=== PATIENT | male | born 1970 | race Two or more races ===

== ENCOUNTER 2016-08-01 09:37 | Emergency (ER) | payer SELFPAY ==
[2016-08-01] MEDS ORDERED: FENTANYL PF 100 MCG/2 ML VIAL. IV PRN (10:15)
[2016-08-01] MEDS ORDERED: NITROGLYCERIN SUBLINGUAL 0.4 MG BOTTLE OF 25. SL PRN (10:15)
[2016-08-01 10:31] LABS: CALCIUM 8.8 mg/dL (8.5-10.1); CREATININE 0.8 mg/dL (0.7-1.3); GFR 105.5
[2016-08-01 10:33] LABS: BASO % 0 % (0-3); EOS % 0 % (0-3); HEMATOCRIT 45.8 % (39.0-53.0); HEMOGLOBIN 15.8 g/dL (13.0-17.5); LYMPH # 1.9 x10^3/uL (1.0-4.8); LYMPH % 19 % (24-48); MEAN CORPUSCULAR HEMOGLOBIN 30 pg (25-35); MEAN CORPUSCULAR HGB CONC 35 g/dL (31-37); MEAN CORPUSCULAR VOLUME 88 fL (79-100); MONO % 8 % (0-9); NEUT % 73 % (31-73); PLATELET COUNT 228 x10^3/uL (140-400); RED CELL DISTRIBUTION WIDTH 12.8 % (11.5-14.5); WHITE BLOOD COUNT 10.5 x10^3/uL (4.0-11.0)
[2016-08-01 10:35] LABS: ALBUMIN 4.5 g/dL (3.4-5.0); DIRECT BILIRUBIN 0.1 mg/dL (0.0-0.2); TOTAL BILIRUBIN 0.3 mg/dL (0.2-1.0); TOTAL PROTEIN 7.9 g/dL (6.4-8.2)
--- NOTE | 2016-08-01 10:36 | RAD ---
Portable chest, 08/01/2016: History: Chest pain The heart size and pulmonary vascularity are normal. No pulmonary infiltrates are seen. There is no evidence of pleural fluid. IMPRESSION: No acute cardiopulmonary abnormality is detected.
[2016-08-01 10:37] LABS: BARBITURATES NEG (NEG); BENZODIAZEPINES NEG (NEG); CANNABINOIDS NEG (NEG); COCAINE NEG (NEG); METHADONE NEG (NEG); OPIATES NEG (NEG); PHENCYCLIDINE NEG (NEG)
--- NOTE | 2016-08-01 10:38 | EKG ---
[facility] [address] [place] [address] Test Date: 2016-08-01 Test Time: 09:51:02 Pat Name: FAROOQ GONG Department: Room: Gender: Financial Assistant: : 1970 Requested By: ABBE ELISE Order Number: [id number] Reading MD: Measurements Intervals [place] Rate: 89 P: 28 KS: 140 QRS: 50 QRSD: 102 T: 28 QT: 336 QTc: 410 Interpretive Statements SINUS RHYTHM NORMAL ECG RI6.01 No previous ECG available for comparison
[2016-08-01 10:39] LABS: ETHANOL, URINE NEG (NEG)
[2016-08-01] MEDS ORDERED: ASPIRIN 325 MG TABLET PO ONE (11:00)
[2016-08-01 12:19] VITALS: BP 113/68
--- NOTE | 2016-08-01 16:46 | ED.ADGEN ---
Past Medical History Past Medical History: No Pertinent History Past Surgical History: No Surgical History Alcohol Use: None Drug Use: None Adult General Chief Complaint Chief Complaint: CHEST PAIN HPI HPI Patient is a 45 year old man, with no significant past no history, who presents to the emergency department with a complaint of chest pain. Patient states the pain began this morning, woke him from sleep, he states that he's had pain similar over the past 6 months, coming and going. He states the pain is located in the left upper chest and he also has pain sometimes in his right shoulder. Pain in the left side sometimes does radiate to the side and back. Patient states pain is sometimes worse with deep inspiration, although currently he is not having any pain with deep inspiration, denies worsening of pain with motion. Patient denies any shortness of breath, any nausea or vomiting , any weakness, numbness or tingling, any headache, any dizziness. No recent travel or surgery, history of DVT or PE. 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 Patient is not experiencing any pain at this time. He has not previously had any cardiac evaluation, he doesn't have a primary care provider. He does not take any medications on a regular basis, he did take acetaminophen prior to coming to the ED. Review of Systems Review of Systems Constitutional: Denies fever or chills. [] Eyes: Denies change in visual acuity. [] HENT: Denies nasal congestion or sore throat. [] Respiratory: Denies cough or shortness of breath. [] Cardiovascular: Left-sided chest pain, no edema. Right shoulder pain. GI: Denies abdominal pain, nausea, vomiting, bloody stools or diarrhea. [] : Denies dysuria. [] Musculoskeletal: Denies back pain or joint pain. [] Integument: Denies rash. [] Neurologic: Denies headache, focal weakness or sensory changes. [] Endocrine: Denies polyuria or polydipsia. [] Lymphatic: Denies swollen glands. [] Psychiatric: Denies depression or anxiety. [] Current Medications Current Medications Current Medications Medications (Trade) Dose Ordered Sig/Dimitri Start Time Stop Time Status Last Admin Dose Admin Aspirin (Alyse Aspirin) 325 mg 1X ONCE 08/01/16 11:00 08/01/16 11:01 DC 08/01/16 10:26 325 MG Fentanyl Citrate (Fentanyl 2ml Vial) 25 mcg PRN Q15MIN PRN 08/01/16 10:15 08/01/16 12:37 DC Nitroglycerin (Nitrostat) 0.4 mg PRN Q5MIN PRN 08/01/16 10:15 08/01/16 12:37 DC Allergies Allergies Allergies Coded Allergies Type Severity Reaction Last Updated Verified No Known Drug Allergies 08/01/16 No Physical Exam Physical Exam Constitutional: Well developed, well nourished, no acute distress, non-toxic appearance. [] HENT: Normocephalic, atraumatic, bilateral external ears normal, oropharynx moist, no oral exudates, nose normal. [] Eyes: PERRLA, EOMI, conjunctiva normal, no discharge. [] Neck: Normal range of motion, no tenderness, supple, no stridor. [] Cardiovascular:Heart rate regular rhythm, no murmur, S1, S2, no rubs or gallops. [] Lungs & Thorax: Bilateral breath sounds clear to auscultation, no wheezing, rhonchi, rales. No chest wall crepitus. Patient with reproducible left anterior chest wall tenderness with palpation. No lesions rashes or external abnormalities identified. Abdomen: Bowel sounds normal, soft, no tenderness, no rebound, rigidity, no guarding, no masses, no pulsatile masses. [] Skin: Warm, dry, no erythema, no rash. [] Back: No tenderness, no CVA tenderness. [] Extremities: No tenderness, no cyanosis, no clubbing, ROM intact, no edema. Negative Homans sign. [] Neurologic: Alert and oriented X 3, normal motor function, normal sensory function, no focal deficits noted. [] Psychologic: Affect normal, judgement normal, mood normal. [] Current Patient Data Vital Signs Vital Signs Date Time Temp Pulse Resp B/P Pulse Ox O2 Delivery O2 Flow Rate FiO2 08/01/16 12:19 74 113/68 98 08/01/16 09:48 98.0 18 Room Air 98.0 Lab Values Laboratory Tests Test 08/01/16 10:01 08/01/16 11:48 White Blood Count 10.5x10^3/uL (4.0-11.0) Red Blood Count 5.20x10^6/uL (4.30-5.70) Hemoglobin 15.8g/dL (13.0-17.5) Hematocrit 45.8% (39.0-53.0) Mean Corpuscular Volume 88fL (79-100) Mean Corpuscular Hemoglobin 30pg (25-35) Mean Corpuscular Hemoglobin Concent 35g/dL (31-37) Red Cell Distribution Width 12.8% (11.5-14.5) Platelet Count 228x10^3/uL (140-400) Neutrophils (%) (Auto) 73% (31-73) Lymphocytes (%) (Auto) 19% (24-48) L Monocytes (%) (Auto) 8% (0-9) Eosinophils (%) (Auto) 0% (0-3) Basophils (%) (Auto) 0% (0-3) Neutrophils # (Auto) 7.6x10^3uL (1.8-7.7) Lymphocytes # (Auto) 1.9x10^3/uL (1.0-4.8) Monocytes # (Auto) 0.8x10^3/uL (0.0-1.1) Eosinophils # (Auto) 0.0x10^3/uL (0.0-0.7) Basophils # (Auto) 0.0x10^3/uL (0.0-0.2) Sodium Level 141mmol/L (136-145) Potassium Level 4.0mmol/L (3.5-5.1) Chloride Level 104mmol/L (98-107) Carbon Dioxide Level 26mmol/L (21-32) Anion Gap 11 (6-14) Blood Urea Nitrogen 15mg/dL (8-26) Creatinine 0.8mg/dL (0.7-1.3) Estimated GFR (Cockcroft-Gault) 105.5 Glucose Level 89mg/dL (70-99) Calcium Level 8.8mg/dL (8.5-10.1) Total Bilirubin 0.3mg/dL (0.2-1.0) Direct Bilirubin 0.1mg/dL (0.0-0.2) Aspartate Amino Transferase (AST) 25U/L (15-37) Alanine Aminotransferase (ALT) 49U/L (16-63) Alkaline Phosphatase 107U/L (46-116) Troponin I Quantitative < 0.017ng/mL (0.000-0.055) VU-Qfl-E-Type Natriuretic Peptide 24pg/mL (0-124) Total Protein 7.9g/dL (6.4-8.2) Albumin 4.5g/dL (3.4-5.0) Lipase 238U/L (73-393) Urine Opiates Screen Neg (NEG) Urine Methadone Screen Neg (NEG) Urine Barbiturates Neg (NEG) Urine Phencyclidine Screen Neg (NEG) Urine Amphetamine/Methamphetamine Neg (NEG) Urine Benzodiazepines Screen Neg (NEG) Urine Cocaine Screen Neg (NEG) Urine Cannabinoids Screen Neg (NEG) Urine Ethyl Alcohol Neg (NEG) POC Troponin I 0.00ng/ml (<0.08) Laboratory Tests 08/01/16 10:01 Laboratory Tests 08/01/16 10:01 EKG EKG EC: Sinus rhythm, heart rate 89 beats minute, QTC of 410, IA of 140, QRS of 102, no ST elevations or depressions, no evidence of acute ST abnormalities. As interpreted by me. [] Radiology/Procedures Radiology/Procedures [] [facility] [address] [place] [address] IMAGING REPORT Signed PATIENT: FAROOQ GONG ACCOUNT: [id number] : 1970 LOCATION: ER AGE: 45 SEX: M EXAM STATUS: PRE ER ORD. PHYSICIAN: ABBE ELISE DO REASON: CP PROCEDURE: PORTABLE CHEST 1V Portable chest, 08/01/2016: History: Chest pain The heart size and pulmonary vascularity are normal. No pulmonary infiltrates are seen. There is no evidence of pleural fluid. IMPRESSION: No acute cardiopulmonary abnormality is detected. DICTATED and SIGNED BY: DULCE MARIA VASQUEZ MD DATE: 08/01/16 1033 CC: ABBE ELISE DO ~ Course & Med Decision Making Course & Med Decision Making Pertinent Labs and Imaging studies reviewed. (See chart for details) Patient pain-free in the emergency department, able to reproduce patient's pain with palpation of the left anterior chest wall. Patient is primarily Salvadorean- speaking, interview and examination assisted by nurse Viri. Chest x-ray, laboratory studies and ECG does not reveal any concerning findings. Patient remains chest pain-free, stated pain is coming over the past 6 months, patient does not have risk factors consistent with pulmonary embolus or other concerning findings, and is PERC negative. I did discuss findings with patient at bedside, offered admission to the hospital for continued cardiac evaluation versus prompt close follow-up. Patient received a repeat troponin the ED which was negative. Patient states that he would prefer to follow-up in the outpatient setting, he does have insurance, and would like to be set up with a resort host. I did speak to Dr. Coates, who evaluated the patient in the emergency department. Patient be discharged home with clear and detailed return instructions with which he voiced understanding and agreement, to follow-up tomorrow in the outpatient setting with Dr. Coates to be scheduled for an outpatient stress test. Patient to return to the ED if any new or concerning symptoms develop. Patient discharged home in stable condition with his family with plan as above. Dragon Disclaimer Dragon Disclaimer This electronic medical record was generated, in whole or in part, using a voice recognition dictation system. Departure Impression: Primary Impression: Chest pain Disposition: ADMITTED INPATIENT Condition: IMPROVED ABBE ELISE DO Aug 01, 2016 16:46
== END 2016-08-01 12:37 | disposition home or self-care (01) ==
LOC: ER 09:37
DX: R07.89 Other chest pain (principal); M25.511 Pain in right shoulder
CPT/HCPCS: 36415; 71010; 80048; 80076; 80305; 80320; 83690; 83880; 84484; 85027; 93005; G0481; 99285-25